=== PATIENT | female | born 1990 | race Caucasian/White ===

== ENCOUNTER 2024-09-05 14:04 | Emergency (ER) | payer MEDICAID ==
[~2024-09-05] VITALS: Ht 152.4 cm; Wt 86.1 kg
[2024-09-05 14:07] VITALS: PULSE 66; RESP 16; O2SAT 100
[2024-09-05 14:09] VITALS: BP 142/77; TEMP 36.8; O2SAT 98
[2024-09-05] MEDS ORDERED: ACET-2708 MT (16:57)
== END 2024-09-05 18:07 | disposition home or self-care (01) ==
LOC: ER 14:13
DX: S80.01XA Contusion of right knee, initial encounter (principal); Z98.890 Other specified postprocedural states; W19.XXXA Unspecified fall, initial encounter; Y93.89 Activity, other specified; Y92.89 Other specified places as the place of occurrence of the external cause; Y99.8 Other external cause status
CPT/HCPCS: 73560; 73562; 99283